=== PATIENT | male | born 1990 | race Caucasian/White ===

== ENCOUNTER 2019-06-02 12:37 | Emergency (ER) | payer SELFPAY ==
[2019-06-02] MEDS ORDERED: Acetaminophen/HYDROcodone 325-5 MG Tab PO ONE (13:07)
--- NOTE | 2019-06-02 14:36 | CR ---
Chest: Two views of the chest were obtained. Comparison: No previous chest x-ray. Heart size and mediastinum are normal. Lungs are clear. Bony structures are unremarkable. Impression: 1. Nothing acute is seen on two-view chest x-ray. Diagnostic code #1
--- NOTE | 2019-06-02 14:37 | EDM.PDOC ---
ED HPI GENERAL MEDICAL PROBLEM - General Chief Complaint: Chest Pain Stated Complaint: CHEST PAIN Time Seen by Provider: 06/02/19 12:50 Source of Information: Reports: Patient History Limitations: Reports: No Limitations - History of Present Illness INITIAL COMMENTS - FREE TEXT/NARRATIVE: The patient presents with right sided chest pain. This started today when he was taping insulation. He has no shortness of breath with it but it does hurt more when he moved is right arm. He has no history of heart problems. He does smoke. He has no history of hypertension or hypercholesterolemia. He has no family history of heart problems. Onset: Sudden Duration: Hour(s): Location: Reports: Chest Quality: Reports: Sharp Severity: Moderate Improves with: Reports: Immobilization Worsens with: Reports: Movement Context: Denies: Trauma Associated Symptoms: Reports: Chest Pain. Denies: Cough, Fever/Chills, Headaches, Nausea/Vomiting, Shortness of Breath Right Upper Chest Pain Score (Numeric/FACES): 4 - Related Data Allergies Allergy/AdvReac Type Severity Reaction Status Date / Time No Known Allergies Allergy Verified 06/02/19 12:46 Home Meds: Home Meds . [No Known Home Meds] 06/02/19 [History] Past Medical History Cardiovascular History: Reports: None Respiratory History: Reports: None Gastrointestinal History: Reports: None Genitourinary History: Reports: None Musculoskeletal History: Reports: Fracture Other Musculoskeletal History: Dislocated right shoulder x2. Neurological History: Reports: None Psychiatric History: Reports: None Endocrine/Metabolic History: Reports: None Hematologic History: Reports: None Immunologic History: Reports: None Oncologic (Cancer) History: Reports: None Dermatologic History: Reports: None - Infectious Disease History Infectious Disease History: Reports: None - Past Surgical History Head Surgeries/Procedures: Reports: None HEENT Surgical History: Reports: Oral Surgery Social & Family History - Tobacco Use Smoking Status *Q: Current Every Day Smoker Years of Tobacco use: 13 Packs/Tins Daily: 1.5 - Caffeine Use Caffeine Use: Reports: Coffee - Recreational Drug Use Recreational Drug Use: No Drug Use in Last 12 Months: No ED ROS GENERAL - Review of Systems Review Of Systems: See Below Constitutional: Reports: No Symptoms HEENT: Reports: No Symptoms Respiratory: Reports: No Symptoms Cardiovascular: Reports: Chest Pain Endocrine: Reports: No Symptoms GI/Abdominal: Reports: No Symptoms : Reports: No Symptoms Musculoskeletal: Reports: No Symptoms ED EXAM, GENERAL - Physical Exam Exam: See Below Exam Limited By: No Limitations General Appearance: Alert, No Apparent Distress Ears: Normal External Exam Nose: Normal Inspection Head: Atraumatic, Normocephalic Neck: Normal Inspection Respiratory/Chest: No Respiratory Distress, Lungs Clear, Normal Breath Sounds Cardiovascular: Regular Rate, Rhythm, No Edema, No Murmur, Other (Pain with palpation to the right chest) GI/Abdominal: Soft, Non-Tender, No Organomegaly, No Mass Back Exam: Normal Inspection Extremities: Normal Inspection EKG INTERPRETATION EKG Date: 06/02/19 Time: 13:26 Rhythm: NSR Rate (Beats/Min): 66 [place]: Normal P-Wave: Present QRS: Normal ST-T: Elevated (normal early repol) QT: Normal Course - Vital Signs Last Recorded V/S: Last Vital Signs Temp 97.3 F 06/02/19 12:43 Pulse 81 06/02/19 12:43 Resp 16 06/02/19 12:43 BP 116/79 06/02/19 12:43 Pulse Ox 97 06/02/19 12:43 - Orders/Labs/Meds Orders: Active Orders 24 hr Category Date Time Status Cardiac Monitoring [RC] . DIRECTED Care 06/02/19 13:06 Active EKG Documentation Completion [RC] STAT Care 06/02/19 13:06 Active Chest 2V [CR] Stat Exams 06/02/19 13:07 Taken Labs: Laboratory Tests 06/02/19 06/02/19 06/02/19 Range/Units 13:19 13:19 13:19 WBC 8.16 (4.23-9.07) K/mm3 RBC 5.25 (4.63-6.08) M/mm3 Hgb 16.9 (13.7-17.5) gm/dl Hct 46.3 (40.1-51.0) % MCV 88.2 (79.0-92.2) fl MCH 32.2 (25.7-32.2) pg MCHC 36.5 H (32.2-35.5) g/dl RDW Std Deviation 41.9 (35.1-43.9) fL Plt Count 249 (163-337) K/mm3 MPV 10.3 (9.4-12.3) fl Neut % (Auto) 62.2 (34.0-67.9) % Lymph % (Auto) 27.1 (21.8-53.1) % [place] % (Auto) 7.2 (5.3-12.2) % Eos % (Auto) 2.9 (0.8-7.0) Baso % (Auto) 0.6 (0.1-1.2) % Neut # (Auto) 5.07 (1.78-5.38) K/mm3 Lymph # (Auto) 2.21 (1.32-3.57) K/mm3 [place] # (Auto) 0.59 (0.30-0.82) K/mm3 Eos # (Auto) 0.24 (0.04-0.54) K/mm3 Baso # (Auto) 0.05 (0.01-0.08) K/mm3 D-Dimer, Quantitative < 0.19 L (0.19-0.50) mg/L Sodium 137 (136-145) mEq/L Potassium 4.1 (3.5-5.1) mEq/L Chloride 104 (98-107) mEq/L Carbon Dioxide 24 (21-32) mEq/L Anion Gap 13.1 (5-15) BUN 15 (7-18) mg/dL Creatinine 0.9 (0.7-1.3) mg/dL Est Cr Clr Drug Dosing 130.53 mL/min Estimated GFR (MDRD) > 60 (>60) mL/min BUN/Creatinine Ratio 16.7 (14-18) Glucose 96 (74-106) mg/dL Calcium 9.8 (8.5-10.1) mg/dL Total Bilirubin 0.8 (0.2-1.0) mg/dL AST 30 (15-37) U/L ALT 60 (16-63) U/L Alkaline Phosphatase 76 (46-116) U/L Troponin I < 0.017 (0.00-0.056) ng/mL Total Protein 7.1 (6.4-8.2) g/dl Albumin 4.0 (3.4-5.0) g/dl Globulin 3.1 gm/dL Albumin/Globulin Ratio 1.3 (1-2) Meds: Medications Discontinued Medications Generic Name Dose Route Start Last Admin Trade Name Freq PRN Reason Stop Dose Admin Hydrocodone Bitart/Acetaminophen 2 tab 06/02/19 13:07 06/02/19 13:13 [place] 325-5 Mg PO 06/02/19 13:08 2 tab ONETIME ONE Administration - Re-Assessments/Exams Free Text/Narrative Re-Assessment/Exam: 06/02/19 14:36 I ordered an EKG, CXR, labs and hydrocodone. His EKG shows a NSR with no acute changes. His CXR looks good. His CBC and CMP look good. 06/02/19 14:37 His troponin and D-dimer look good. He feels better. I will discharge him home. Departure - Departure Time of Disposition: 14:40 Disposition: Home, Self-Care 01 Condition: Good Clinical Impression: Atypical chest pain Referrals: PCP,None [Primary Care Provider] - Forms: ED Department Discharge, ED Return to Work/School Form Additional Instructions: Take motrin or aleve as needed for pain. Please return if you are worse. - My Orders Last 24 Hours: My Active Orders 06/02/19 13:06 Cardiac Monitoring [RC] . DIRECTED EKG Documentation Completion [RC] STAT 06/02/19 13:07 Chest 2V [CR] Stat - Assessment/Plan Last 24 Hours: My Active Orders 06/02/19 13:06 Cardiac Monitoring [RC] . DIRECTED EKG Documentation Completion [RC] STAT 06/02/19 13:07 Chest 2V [CR] Stat
== END 2019-06-02 15:05 | disposition home or self-care (01) ==
LOC: JD.ED 12:37
DX: R07.89 Other chest pain (principal); F17.210 Nicotine dependence, cigarettes, uncomplicated
CPT/HCPCS: 36415; 71046; 80053; 84484; 85025; 85379; 93005; 99285; A9270

== ENCOUNTER 2019-06-15 20:48 | Emergency (ER) | payer SELFPAY ==
[2019-06-15] MEDS ORDERED: Ketorolac 60 MG/2 ML SDV IM ONE (21:03)
--- NOTE | 2019-06-15 21:16 | EDM.PDOC ---
ED HPI GENERAL MEDICAL PROBLEM - General Chief Complaint: ENT Problem Stated Complaint: TOOTH PAIN Time Seen by Provider: 06/15/19 21:03 Source of Information: Reports: Patient, RN Notes Reviewed History Limitations: Reports: No Limitations - History of Present Illness INITIAL COMMENTS - FREE TEXT/NARRATIVE: Patient is a 29-year-old male who presents to the ED for evaluation of dental pain. The patient states that he developed dental pain to his left lower molar this Saturday. He notes that he grinds his teeth at night, and tends to break down the teeth, of note his teeth are in very poor repair, with multiple cavities and caps noted. The patient states he has not seen a dentist in over a year, the last dentist he saw was in [place]. The patient states that he does grind his teeth at night, and tends to break the teeth because of this. The patient states he has not been given a mouth guard regarding the teeth grinding at night. He would rate his pain at a 10 out of 10 tonight. Left Lower Pain Score (Numeric/FACES): 10 - Related Data Allergies Allergy/AdvReac Type Severity Reaction Status Date / Time No Known Allergies Allergy Verified 06/02/19 12:46 Home Meds: Home Meds Penicillin V Potassium 500 mg PO Q6HR #40 tab 06/15/19 [Rx] Past Medical History Cardiovascular History: Reports: None Respiratory History: Reports: None Gastrointestinal History: Reports: None Genitourinary History: Reports: None Musculoskeletal History: Reports: Fracture Other Musculoskeletal History: Dislocated right shoulder x2. Neurological History: Reports: None Psychiatric History: Reports: None Endocrine/Metabolic History: Reports: None Hematologic History: Reports: None Immunologic History: Reports: None Oncologic (Cancer) History: Reports: None Dermatologic History: Reports: None - Infectious Disease History Infectious Disease History: Reports: None - Past Surgical History Head Surgeries/Procedures: Reports: None HEENT Surgical History: Reports: Oral Surgery Social & Family History - Tobacco Use Smoking Status *Q: Current Every Day Smoker Years of Tobacco use: 13 Packs/Tins Daily: 1 - Caffeine Use Caffeine Use: Reports: Coffee, Soda - Recreational Drug Use Recreational Drug Use: No ED ROS ENT - Review of Systems Review Of Systems: See Below Constitutional: Denies: Fever, Chills HEENT: Reports: Dental Pain. Denies: Throat Pain, Throat Swelling Respiratory: Denies: Shortness of Breath Cardiovascular: Denies: Chest Pain Endocrine: Reports: No Symptoms GI/Abdominal: Reports: No Symptoms : Reports: No Symptoms Musculoskeletal: Reports: No Symptoms Skin: Reports: No Symptoms Neurological: Reports: No Symptoms Psychiatric: Reports: No Symptoms Hematologic/Lymphatic: Reports: No Symptoms Immunologic: Reports: No Symptoms ED EXAM, ENT - Physical Exam Exam: See Below Exam Limited By: No Limitations General Appearance: Alert, WD/WN, Mild Distress (pt is balled up on his side on ED cot, holding his left jaw in his hand and is overly dramatic) Eye Exam: Bilateral Eye: EOMI, Normal Inspection, PERRL Ears: Normal External Exam, Normal Canal, Hearing Grossly Normal, Normal TMs Nose: Normal Inspection Mouth/Throat: Normal Inspection, Normal Gums, Normal Lips, Normal Oropharynx, Dental Pain (Left lower molar does appear eroded to the lateral aspect. Multiple silver caps noted throughout the entire dentition, multiple cavities noted, dentition is in very poor repair.). No: Pharyngeal Erythema, Throat Pain Head: Atraumatic, Normocephalic Neck: Normal Inspection, Supple, Tender Lateral (under jaw line of affected tooth) Respiratory/Chest: No Respiratory Distress, Lungs Clear, Normal Breath Sounds, No Accessory Muscle Use, Chest Non-Tender Cardiovascular: Normal Peripheral Pulses, Regular Rate, Rhythm, No Murmur Extremities: Normal Inspection, Normal Capillary Refill Neurological: Alert, Oriented, Normal Cognition, No Motor/Sensory Deficits Psychiatric: Normal Affect, Normal Mood (pt is overly dramatic, he appears to be in some pain.) Skin: Warm, Dry, Intact, Normal Color, No Rash Course - Vital Signs Last Recorded V/S: Last Vital Signs Temp 95.8 F 06/15/19 20:59 Pulse 90 06/15/19 20:59 Resp 28 H 06/15/19 20:59 BP 156/99 H 06/15/19 20:59 Pulse Ox 99 06/15/19 20:59 - Orders/Labs/Meds Meds: Medications Discontinued Medications Generic Name Dose Route Start Last Admin Trade Name Freq PRN Reason Stop Dose Admin Ketorolac Tromethamine 60 mg 06/15/19 21:03 06/15/19 21:08 Toradol IM 06/15/19 21:04 60 mg ONETIME ONE Administration Penicillin V Potassium 500 mg 06/15/19 21:19 Veetids PO 06/15/19 21:20 ONETIME ONE - Re-Assessments/Exams Free Text/Narrative Re-Assessment/Exam: 06/15/19 21:16 Patient resents to the ED for evaluation of a tooth complaint. I do suspect that the patient is having some pain related to this, I did order 60 mg IM Toradol for initial management, patient will be placed on a 10 day course of penicillin for suspected dental infection. He will need to follow up with a dentist for definitive management of his dental pain. I will discharge home with general recommendations. Departure - Departure Time of Disposition: 21:18 Disposition: Home, Self-Care 01 Condition: Fair Clinical Impression: Pain, dental, Dental caries - Discharge Information *PRESCRIPTION DRUG MONITORING PROGRAM REVIEWED*: No *COPY OF PRESCRIPTION DRUG MONITORING REPORT IN PATIENT LEONIDAS: No Prescriptions: Penicillin V Potassium 500 mg PO Q6HR #40 tab Instructions: Diet and Dental Disease Referrals: PCP,None [Primary Care Provider] - Forms: ED Department Discharge Additional Instructions: You have been evaluated in the ED for your dental pain. You have been provided with a script for Penicillin. Please take this medication as directed. (1 tab every 6 hours for 10 days or until gone). Aleve provides good pain relief for dental pain. Please take 1-2 tabs twice daily as needed for pain. You may use hot pack/ ice packs to the affected area as tolerated in 15-20 minute intervals. You will ultimately need to find a dentist to provide definitive management of your dental pain. If you are having issues grinding her teeth at night, recommend you go to any retail pharmacy or store like [facility], and get a mouthguard to use at night. Please return to the ED if your symptoms change or worsen.
[2019-06-15] MEDS ORDERED: Penicillin V Potassium 500 MG Tab PO ONE (21:19)
== END 2019-06-15 21:30 | disposition home or self-care (01) ==
LOC: JD.ED 20:48
DX: K02.9 Dental caries, unspecified (principal); F17.210 Nicotine dependence, cigarettes, uncomplicated
CPT/HCPCS: 96372; 99282; A9270; J1885; 99283